=== PATIENT | female | born 1955 | race Caucasian/White ===

== ENCOUNTER 2017-01-26 18:36 | Observation (INO) | payer OTHER ==
[~2017-01-26] VITALS: Ht 160 cm; Wt 106.7 kg
[2017-01-29] MEDS ORDERED: ALBUTEROL0.63 MG/3 IH (08:55)
[2017-01-29] MEDS ORDERED: BREO ELLIP1 PUFF/DOS IH (08:55)
[2017-01-29] MEDS ORDERED: LATANOPROST2.5 ML OU (08:56)
[2017-01-29] MEDS ORDERED: ALEVE220 M1 PO (08:56)
[2017-01-29] MEDS ORDERED: NORCO 5-325 TA1 EACH PO (08:57)
[2017-01-29] MEDS ORDERED: PROAIR RESPICL90 MCG IH (08:57)
--- NOTE | 2017-02-01 08:36 | OR ---
ADMIT: 01/26/2017 RM/LOC: [address] [facility] MR#: [id number] [address] [address] [place] [address] Operative/Delivery Room Report SEX: F AGE: 62 : 1955 SURGERY DATE: 01/27/2017 SURGEON: Adithya Vega MD PREOPERATIVE DIAGNOSES: 1. Cholelithiasis. 2. Cholecystitis. POSTOPERATIVE DIAGNOSES: 1. Cholelithiasis. 2. Cholecystitis. PROCEDURE: Laparoscopic cholecystectomy. MANUAL LATHE MACHINIST: DENISE Osborne, whose assistance was necessary for laparoscopic visualization and tissue retraction. ANESTHESIA: General endotracheal. ESTIMATED BLOOD LOSS: 10 mL. DESCRIPTION OF PROCEDURE: The patient was taken to the operating room and placed supine on the operating room table. General anesthesia was established. The abdomen was prepped and draped in the standard surgical fashion. A 5 mm midclavicular left subcostal incision was made. The Veress needle was advanced into the peritoneal cavity. Carbon dioxide was used to insufflate the abdomen to 15 mmHg pressure. The Veress needle was withdrawn, and a 5 mm XCEL trocar was placed. This showed relative free area from adhesions in the left upper quadrant. The adhesions extended to the supraumbilical position. Next, right lateral 5 mm ports were placed under visualization as well as a supraumbilical 5 mm port. An additional 11 mm subxiphoid port was placed. The gallbladder was completely encased in scar tissue. These adhesions to the gallbladder edge were taken down with retraction and cautery to Calot's triangle. The cystic duct was skeletonized and the view of safety was obtained. The cystic duct was doubly clipped distally, singly clipped proximally, and divided. The cystic artery was skeletonized, doubly clipped proximally, singly clipped distally, and divided. ADMIT: 01/26/2017 RM/LOC: [address] [facility] MR#: [id number] [facility] [address] [address] [place] [address] Operative/Delivery Room Report SEX: F AGE: 62 : 1955 The gallbladder was excised from the gallbladder fossa with Bovie cautery. It was placed in an EndoCatch bag and removed through the subxiphoid port site. The right upper quadrant was irrigated. There was no evidence of bleeding, no evidence of bile leak, and the clips remained intact on the cystic duct and artery. The ports were removed under visualization without evidence of bleeding. The fascial margin at the 11 mm port site was approximated with suture passer and an 0 Vicryl tie. The abdomen was allowed to deflate. Skin edges were approximated with 4-0 Monocryl in a subcuticular fashion and Dermabond. Local anesthetic was injected at the incisions. Sponge, needle, and instrument counts were correct at the end of the case. The patient tolerated the procedure well and transferred to the recovery area in stable condition. Adithya Vega MD/ marian JOB #: [id number] CC: Adithya Vega, Attending Physician Carmela Moore, Family Physician
== END 2017-01-27 18:00 | disposition home or self-care (01) ==
LOC: 6PED 18:36 → WOR 01-27 17:00
PROVIDERS: ADMIT Surgery
PROC: 0FT44ZZ Resection of Gallbladder, Percutaneous Endoscopic Approach (ICD-10-PCS; principal; 2017-01-27)
DX: K80.10 Calculus of gallbladder with chronic cholecystitis without obstruction (principal); J45.909 Unspecified asthma, uncomplicated; E66.9 Obesity, unspecified; Z98.890 Other specified postprocedural states; Z79.899 Other long term (current) drug therapy; Z88.0 Allergy status to penicillin